=== PATIENT | male | born 1950 | race Caucasian/White ===

== ENCOUNTER → 2021-07-04 08:29 | Outpatient (CLI) | payer MEDICARE, BC, SELFPAY | PROVIDERS: PCP Anesthesiology Pain Medicine; Referring Provider Podiatrist; Visit Provider Family Medicine | DX: E11.621 Type 2 diabetes mellitus with foot ulcer (principal); L97.522 Non-pressure chronic ulcer of other part of left foot with fat layer exposed; L08.9 Local infection of the skin and subcutaneous tissue, unspecified; L84 Corns and callosities; E11.40 Type 2 diabetes mellitus with diabetic neuropathy, unspecified; Z79.84 Long term (current) use of oral hypoglycemic drugs | CPT/HCPCS: 11042; 87070; 87075; 87205; 99204; 99213 ==

== ENCOUNTER → 2021-07-11 09:57 | Outpatient (CLI) | payer MEDICARE, BC, SELFPAY | PROVIDERS: PCP Anesthesiology Pain Medicine; Referring Provider Anesthesiology Pain Medicine; Visit Provider Family Medicine | DX: E11.621 Type 2 diabetes mellitus with foot ulcer (principal); L97.522 Non-pressure chronic ulcer of other part of left foot with fat layer exposed; L84 Corns and callosities; E11.40 Type 2 diabetes mellitus with diabetic neuropathy, unspecified; Z79.84 Long term (current) use of oral hypoglycemic drugs | CPT/HCPCS: 11042 ==

== ENCOUNTER → 2021-07-18 09:20 | Outpatient (CLI) | payer MEDICARE, BC, SELFPAY | PROVIDERS: PCP Anesthesiology Pain Medicine; Referring Provider Podiatrist; Visit Provider Family Medicine | DX: E11.621 Type 2 diabetes mellitus with foot ulcer (principal); L97.522 Non-pressure chronic ulcer of other part of left foot with fat layer exposed; E11.40 Type 2 diabetes mellitus with diabetic neuropathy, unspecified | CPT/HCPCS: 99212; 99213 ==

== ENCOUNTER → 2021-08-05 09:11 | Outpatient (CLI) | payer MEDICARE, BC, SELFPAY | PROVIDERS: PCP Anesthesiology Pain Medicine; Referring Provider Anesthesiology Pain Medicine; Visit Provider Family Medicine | DX: E11.621 Type 2 diabetes mellitus with foot ulcer (principal); L97.522 Non-pressure chronic ulcer of other part of left foot with fat layer exposed; L84 Corns and callosities; E11.40 Type 2 diabetes mellitus with diabetic neuropathy, unspecified; Z79.84 Long term (current) use of oral hypoglycemic drugs | CPT/HCPCS: 11042 ==

== ENCOUNTER → 2021-08-07 10:20 | Outpatient (CLI) | payer MEDICARE, BC, SELFPAY | PROVIDERS: PCP Anesthesiology Pain Medicine; Referring Provider Anesthesiology Pain Medicine; Visit Provider Family Medicine | DX: E11.621 Type 2 diabetes mellitus with foot ulcer (principal); L97.522 Non-pressure chronic ulcer of other part of left foot with fat layer exposed; L84 Corns and callosities | CPT/HCPCS: 29445 ==

== ENCOUNTER → 2021-08-14 09:55 | Outpatient (CLI) | payer MEDICARE, BC, SELFPAY | PROVIDERS: PCP Anesthesiology Pain Medicine; Referring Provider Anesthesiology Pain Medicine; Visit Provider Family Medicine | DX: E11.621 Type 2 diabetes mellitus with foot ulcer (principal); L97.521 Non-pressure chronic ulcer of other part of left foot limited to breakdown of skin; R60.0 Localized edema; E11.40 Type 2 diabetes mellitus with diabetic neuropathy, unspecified; Z79.84 Long term (current) use of oral hypoglycemic drugs | CPT/HCPCS: 29445; 99212 ==

== ENCOUNTER → 2021-08-21 09:21 | Outpatient (CLI) | payer MEDICARE, BC, SELFPAY | PROVIDERS: PCP Anesthesiology Pain Medicine; Referring Provider Anesthesiology Pain Medicine; Visit Provider Family Medicine | DX: Z09 Encounter for follow-up examination after completed treatment for conditions other than malignant neoplasm (principal); E11.40 Type 2 diabetes mellitus with diabetic neuropathy, unspecified; Z87.2 Personal history of diseases of the skin and subcutaneous tissue; Z79.84 Long term (current) use of oral hypoglycemic drugs | CPT/HCPCS: 99212; 99213 ==

== ENCOUNTER → 2021-10-17 14:33 | Outpatient (CLI) | payer MEDICARE, BC, SELFPAY | PROVIDERS: PCP Anesthesiology Pain Medicine; Referring Provider Anesthesiology Pain Medicine; Visit Provider Family Medicine | DX: E11.621 Type 2 diabetes mellitus with foot ulcer (principal); L97.422 Non-pressure chronic ulcer of left heel and midfoot with fat layer exposed; L97.522 Non-pressure chronic ulcer of other part of left foot with fat layer exposed; L84 Corns and callosities; E11.40 Type 2 diabetes mellitus with diabetic neuropathy, unspecified; Z79.84 Long term (current) use of oral hypoglycemic drugs | CPT/HCPCS: 11042; 99213; 99214 ==

== ENCOUNTER → 2021-11-07 09:17 | Outpatient (CLI) | payer MEDICARE, BC, SELFPAY | PROVIDERS: PCP Anesthesiology Pain Medicine; Referring Provider Anesthesiology Pain Medicine; Visit Provider Family Medicine | DX: E11.621 Type 2 diabetes mellitus with foot ulcer (principal); L97.422 Non-pressure chronic ulcer of left heel and midfoot with fat layer exposed; L84 Corns and callosities; L97.522 Non-pressure chronic ulcer of other part of left foot with fat layer exposed; E11.40 Type 2 diabetes mellitus with diabetic neuropathy, unspecified; Z79.84 Long term (current) use of oral hypoglycemic drugs | CPT/HCPCS: 97597 ==

== ENCOUNTER → 2021-11-28 09:24 | Outpatient (CLI) | payer MEDICARE, BC, SELFPAY | PROVIDERS: PCP Anesthesiology Pain Medicine; Referring Provider Podiatrist; Visit Provider Family Medicine | DX: E11.621 Type 2 diabetes mellitus with foot ulcer (principal); L97.422 Non-pressure chronic ulcer of left heel and midfoot with fat layer exposed; L84 Corns and callosities; L97.511 Non-pressure chronic ulcer of other part of right foot limited to breakdown of skin; L97.512 Non-pressure chronic ulcer of other part of right foot with fat layer exposed; L08.9 Local infection of the skin and subcutaneous tissue, unspecified; E11.40 Type 2 diabetes mellitus with diabetic neuropathy, unspecified; Z91.19 Patient's noncompliance with other medical treatment and regimen; Z79.84 Long term (current) use of oral hypoglycemic drugs | CPT/HCPCS: 11042; 87070; 87077; 87147; 87185; 87186; 87205; 97597; 97598; 99214 ==

== ENCOUNTER → 2021-12-05 08:38 | Outpatient (CLI) | payer MEDICARE, BC, SELFPAY | PROVIDERS: PCP Anesthesiology Pain Medicine; Referring Provider Anesthesiology Pain Medicine; Visit Provider Family Medicine | DX: E11.621 Type 2 diabetes mellitus with foot ulcer (principal); L97.422 Non-pressure chronic ulcer of left heel and midfoot with fat layer exposed; L84 Corns and callosities; L97.512 Non-pressure chronic ulcer of other part of right foot with fat layer exposed; L08.89 Other specified local infections of the skin and subcutaneous tissue; B95.2 Enterococcus as the cause of diseases classified elsewhere; B95.7 Other staphylococcus as the cause of diseases classified elsewhere; B95.61 Methicillin susceptible Staphylococcus aureus infection as the cause of diseases classified elsewhere; E11.40 Type 2 diabetes mellitus with diabetic neuropathy, unspecified; Z79.84 Long term (current) use of oral hypoglycemic drugs | CPT/HCPCS: 11042; 99213 ==

== ENCOUNTER → 2021-12-12 09:28 | Outpatient (CLI) | payer MEDICARE, BC, SELFPAY | PROVIDERS: PCP Anesthesiology Pain Medicine; Referring Provider Anesthesiology Pain Medicine; Visit Provider Family Medicine | DX: E11.621 Type 2 diabetes mellitus with foot ulcer (principal); L97.422 Non-pressure chronic ulcer of left heel and midfoot with fat layer exposed; L97.512 Non-pressure chronic ulcer of other part of right foot with fat layer exposed; L08.9 Local infection of the skin and subcutaneous tissue, unspecified; E11.40 Type 2 diabetes mellitus with diabetic neuropathy, unspecified; Z79.84 Long term (current) use of oral hypoglycemic drugs; L97.519 Non-pressure chronic ulcer of other part of right foot with unspecified severity | CPT/HCPCS: 11042; 73630; 99213 ==

== ENCOUNTER → 2021-12-12 10:39 | Outpatient (CLI) | payer MEDICARE, BC, SELFPAY ==
--- NOTE | 2021-12-12 10:46 | DI.RAD.S_ITS ---
PROCEDURE: XR FOOT RT MIN 3V INDICATIONS: evaluate for osteomyelitis TECHNIQUE: 3 views of the foot were acquired. COMPARISON: None. FINDINGS: Bones: No fractures or dislocations. No suspicious bony lesions. No osseous erosions. No periosteal reaction. Soft tissues: No tibiotalar joint effusion. Achilles tendon appears normal. No soft tissue gas. IMPRESSION: No hanna evidence of osteomyelitis. Plain film radiographs can be insensitive to osteomyelitis during the initial 15 days of the disease process. If there is clinical concern for osteomyelitis, then three-phase nuclear medicine bone scan or MRI should be considered for further evaluation. Dictated by: Tawnya Stock MD, PhD on 12/12/2021 at 12:07 Approved by: Tawnya Stock MD, PhD on 12/12/2021 at 12:08
== END ==
PROVIDERS: PCP Anesthesiology Pain Medicine; Referring Provider Family Medicine; Visit Provider Family Medicine
DX: E11.621 Type 2 diabetes mellitus with foot ulcer (principal); L97.519 Non-pressure chronic ulcer of other part of right foot with unspecified severity
CPT/HCPCS: 73630

== ENCOUNTER → 2021-12-23 09:08 | Outpatient (CLI) | payer MEDICARE, BC, SELFPAY | PROVIDERS: PCP Anesthesiology Pain Medicine; Referring Provider Anesthesiology Pain Medicine; Visit Provider Family Medicine | DX: E11.621 Type 2 diabetes mellitus with foot ulcer (principal); L97.422 Non-pressure chronic ulcer of left heel and midfoot with fat layer exposed; L84 Corns and callosities; L97.512 Non-pressure chronic ulcer of other part of right foot with fat layer exposed; E11.40 Type 2 diabetes mellitus with diabetic neuropathy, unspecified; Z79.84 Long term (current) use of oral hypoglycemic drugs | CPT/HCPCS: 11042 ==

== ENCOUNTER → 2021-12-30 08:53 | Outpatient (CLI) | payer MEDICARE, BC, SELFPAY | PROVIDERS: PCP Anesthesiology Pain Medicine; Referring Provider Anesthesiology Pain Medicine; Visit Provider Family Medicine | DX: E11.621 Type 2 diabetes mellitus with foot ulcer (principal); L97.512 Non-pressure chronic ulcer of other part of right foot with fat layer exposed; E11.42 Type 2 diabetes mellitus with diabetic polyneuropathy; L08.9 Local infection of the skin and subcutaneous tissue, unspecified; Z95.0 Presence of cardiac pacemaker; I48.91 Unspecified atrial fibrillation | CPT/HCPCS: 11042; 87070; 87075; 87077; 87147; 87186; 87205; 93923; 97597; 99213 ==

== ENCOUNTER → 2022-01-08 08:54 | Outpatient (CLI) | payer MEDICARE, BC, SELFPAY | PROVIDERS: PCP Anesthesiology Pain Medicine; Referring Provider Anesthesiology Pain Medicine; Visit Provider Family Medicine | DX: E11.621 Type 2 diabetes mellitus with foot ulcer (principal); E11.628 Type 2 diabetes mellitus with other skin complications; L97.512 Non-pressure chronic ulcer of other part of right foot with fat layer exposed; E11.42 Type 2 diabetes mellitus with diabetic polyneuropathy; L08.9 Local infection of the skin and subcutaneous tissue, unspecified; B95.61 Methicillin susceptible Staphylococcus aureus infection as the cause of diseases classified elsewhere; S81.801A Unspecified open wound, right lower leg, initial encounter; R60.0 Localized edema | CPT/HCPCS: 11042; 97597; 99214 ==

== ENCOUNTER → 2022-01-16 14:17 | Outpatient (CLI) | payer MEDICARE, BC, SELFPAY | PROVIDERS: PCP Anesthesiology Pain Medicine; Referring Provider Anesthesiology Pain Medicine; Visit Provider Family Medicine | DX: E11.621 Type 2 diabetes mellitus with foot ulcer (principal); I87.2 Venous insufficiency (chronic) (peripheral); L97.512 Non-pressure chronic ulcer of other part of right foot with fat layer exposed; L97.812 Non-pressure chronic ulcer of other part of right lower leg with fat layer exposed; L97.822 Non-pressure chronic ulcer of other part of left lower leg with fat layer exposed; L08.9 Local infection of the skin and subcutaneous tissue, unspecified; E11.40 Type 2 diabetes mellitus with diabetic neuropathy, unspecified; R60.0 Localized edema | CPT/HCPCS: 11042; 87070; 87075; 87077; 87186; 87205; 99214 ==

== ENCOUNTER → 2022-02-13 08:38 | Outpatient (CLI) | payer MEDICARE, BC, SELFPAY | PROVIDERS: PCP Anesthesiology Pain Medicine; Referring Provider Podiatrist; Visit Provider Family Medicine | DX: E11.621 Type 2 diabetes mellitus with foot ulcer (principal); E11.622 Type 2 diabetes mellitus with other skin ulcer; L97.512 Non-pressure chronic ulcer of other part of right foot with fat layer exposed; L97.815 Non-pressure chronic ulcer of other part of right lower leg with muscle involvement without evidence of necrosis; E11.40 Type 2 diabetes mellitus with diabetic neuropathy, unspecified; I87.2 Venous insufficiency (chronic) (peripheral); R60.0 Localized edema | CPT/HCPCS: 11042; 15275; Q4105 ==

== ENCOUNTER → 2022-02-20 09:24 | Outpatient (CLI) | payer MEDICARE, BC, SELFPAY | PROVIDERS: PCP Anesthesiology Pain Medicine; Referring Provider Anesthesiology Pain Medicine; Visit Provider Family Medicine | DX: E11.621 Type 2 diabetes mellitus with foot ulcer (principal); I87.2 Venous insufficiency (chronic) (peripheral); L97.512 Non-pressure chronic ulcer of other part of right foot with fat layer exposed; L97.812 Non-pressure chronic ulcer of other part of right lower leg with fat layer exposed; E11.42 Type 2 diabetes mellitus with diabetic polyneuropathy; R60.0 Localized edema | CPT/HCPCS: 11042; 15275; 87070; 87075; 87077; 87147; 87186; 87205; 99213; Q4105 ==

== ENCOUNTER → 2022-02-27 11:05 | Outpatient (CLI) | payer MEDICARE, BC, SELFPAY | PROVIDERS: PCP Anesthesiology Pain Medicine; Referring Provider Anesthesiology Pain Medicine; Visit Provider Family Medicine | DX: I87.2 Venous insufficiency (chronic) (peripheral) (principal); L97.512 Non-pressure chronic ulcer of other part of right foot with fat layer exposed; L97.812 Non-pressure chronic ulcer of other part of right lower leg with fat layer exposed; R60.0 Localized edema; E11.42 Type 2 diabetes mellitus with diabetic polyneuropathy; E11.621 Type 2 diabetes mellitus with foot ulcer; B95.7 Other staphylococcus as the cause of diseases classified elsewhere | CPT/HCPCS: 11042; 99214 ==

== ENCOUNTER → 2022-03-06 10:16 | Outpatient (CLI) | payer MEDICARE, BC, SELFPAY | PROVIDERS: PCP Anesthesiology Pain Medicine; Referring Provider Podiatrist; Visit Provider Family Medicine | DX: E11.621 Type 2 diabetes mellitus with foot ulcer (principal); I87.2 Venous insufficiency (chronic) (peripheral); L97.512 Non-pressure chronic ulcer of other part of right foot with fat layer exposed; L97.812 Non-pressure chronic ulcer of other part of right lower leg with fat layer exposed; E11.42 Type 2 diabetes mellitus with diabetic polyneuropathy | CPT/HCPCS: 11042 ==

== ENCOUNTER → 2022-03-20 10:08 | Outpatient (CLI) | payer MEDICARE, BC, SELFPAY | PROVIDERS: PCP Anesthesiology Pain Medicine; Referring Provider Podiatrist; Visit Provider Family Medicine | DX: E11.621 Type 2 diabetes mellitus with foot ulcer (principal); L97.512 Non-pressure chronic ulcer of other part of right foot with fat layer exposed; L97.522 Non-pressure chronic ulcer of other part of left foot with fat layer exposed; E11.42 Type 2 diabetes mellitus with diabetic polyneuropathy; I87.2 Venous insufficiency (chronic) (peripheral); L97.812 Non-pressure chronic ulcer of other part of right lower leg with fat layer exposed | CPT/HCPCS: 17250; 97597; 99212; 99214 ==

== ENCOUNTER → 2022-04-01 08:53 | Outpatient (CLI) | payer MEDICARE, BC, SELFPAY | PROVIDERS: PCP Anesthesiology Pain Medicine; Referring Provider Podiatrist; Visit Provider Family Medicine | DX: E11.621 Type 2 diabetes mellitus with foot ulcer (principal); I87.2 Venous insufficiency (chronic) (peripheral); L97.522 Non-pressure chronic ulcer of other part of left foot with fat layer exposed; L97.812 Non-pressure chronic ulcer of other part of right lower leg with fat layer exposed; E11.42 Type 2 diabetes mellitus with diabetic polyneuropathy; R60.0 Localized edema | CPT/HCPCS: 11042; 97597; 99214 ==

== ENCOUNTER → 2022-04-08 13:42 | Outpatient (CLI) | payer MEDICARE, BC, SELFPAY | PROVIDERS: PCP Anesthesiology Pain Medicine; Referring Provider Anesthesiology Pain Medicine; Visit Provider Family Medicine | DX: E11.621 Type 2 diabetes mellitus with foot ulcer (principal); L97.522 Non-pressure chronic ulcer of other part of left foot with fat layer exposed; E11.40 Type 2 diabetes mellitus with diabetic neuropathy, unspecified; I87.2 Venous insufficiency (chronic) (peripheral) | CPT/HCPCS: 11042 ==

== ENCOUNTER → 2022-04-17 08:54 | Outpatient (CLI) | payer MEDICARE, BC, SELFPAY | PROVIDERS: PCP Anesthesiology Pain Medicine; Referring Provider Podiatrist; Visit Provider Family Medicine | DX: E11.621 Type 2 diabetes mellitus with foot ulcer (principal); I87.2 Venous insufficiency (chronic) (peripheral); L97.522 Non-pressure chronic ulcer of other part of left foot with fat layer exposed; L97.812 Non-pressure chronic ulcer of other part of right lower leg with fat layer exposed; E11.42 Type 2 diabetes mellitus with diabetic polyneuropathy | CPT/HCPCS: 97597; 99213 ==